=== PATIENT | female | born 1995 | race Caucasian/White ===

== ENCOUNTER 2017-01-01 20:34 | Emergency (ER) | payer BC ==
[2017-01-01 20:56] VITALS: BMI 32.8
--- NOTE | 2017-01-01 23:43 | PDOC ---
History of Present Illness - General Chief Complaint: Headache Stated Complaint: HEADACHE/FATIGUE Time Seen by Provider: 01/01/17 23:19 - History of Present Illness Initial Comments: 01/01/17 23:59 Patient is a 21-year-old female with past medical history of PCOS, prediabetes, hypothyroidism who presents to the emergency department tonight complaining of fatigue and headache. Patient states that her headache started approximately 1 week ago. She notices flashing lights before her headache started. She states that light and sound make her headache worse. The headache is mostly located in of her head. Patient also endorses body aches. States this is unlike her usual headaches. Denies fevers, chills, nausea, vomiting, diarrhea, chest pain, weakness, numbness and tingling, dizziness, changes in gait. Past History - Past Medical History Allergies/Adverse Reactions: Allergies Allergy/AdvReac Type Severity Reaction Status Date / Time No Known Allergies Allergy Verified 01/02/17 04:38 Home Medications: Ambulatory Orders Sulfamethoxazole/Trimethoprim [Bactrim Ds -] 1 tab PO BID #14 tablet 01/02/17 Tramadol HCl/Acetaminophen [Tramadol-Acetaminophn 37.5-325] 1 each PO TID #10 tablet MDD 3 01/02/17 Diabetes: Yes (pre-diabetes) Thyroid Disease: Yes Other medical history: polycystic ovarian syndrome - Psycho/Social/Smoking Cessation Hx Suicidal Ideation: No Smoking History: Never smoked Review of Systems - Review of Systems Able to Perform ROS?: Yes Comments:: 01/02/17 00:04 CONSTITUTIONAL: Present: fatigue Absent: fever, chills, diaphoresis, generalized weakness, malaise, loss of appetite HEENT: Absent: rhinorrhea, nasal congestion, throat pain, throat swelling, difficulty swallowing, mouth swelling, ear pain, eye pain, visual Changes CARDIOVASCULAR: Absent: chest pain, loss of consciousness, palpitations, irregular heart rate, peripheral edema RESPIRATORY: Absent: cough, shortness of breath, dyspnea with exertion, orthopnea, wheezing, stridor, hemoptysis GASTROINTESTINAL: Absent: abdominal pain, abdominal distension, nausea, vomiting, diarrhea, constipation, melena, hematochezia GENITOURINARY: Absent: dysuria, frequency, urgency, hesitancy, hematuria, flank pain, genital pain MUSCULOSKELETAL: Absent: myalgia, arthralgia, joint swelling SKIN: Absent: rash, itching, pallor HEMATOLOGIC/IMMUNOLOGIC: Absent: easy bleeding, easy bruising, lymphadenopathy, frequent infections ENDOCRINE: Absent: unexplained weight gain, unexplained weight loss, heat intolerance, cold intolerance NEUROLOGIC: Present: headache, aura. Absent: focal weakness or paresthesias, dizziness, unsteady gait, seizure, mental status changes, bladder or bowel incontinence PSYCHIATRIC: Absent: anxiety, depression, suicidal or homicidal ideation, hallucinations. Is the patient limited [place] proficient: No *Physical Exam - Vital Signs Last Vital Signs Temp Pulse Resp BP Pulse Ox 98.5 F 93 H 18 140/96 99 01/01/17 20:53 01/01/17 20:53 01/01/17 20:53 01/01/17 20:53 01/01/17 20:53 - Physical Exam Comments: 01/02/17 00:05 GENERAL: Well developed, well nourished. Awake and alert. No acute distress. HEENT: Normocephalic, atraumatic. PERRLA, EOMI. No conjunctival pallor. Sclera are non- icteric. Moist mucous membranes. Oropharynx is clear. NECK: Supple. Full ROM. No JVD. Carotid pulses 2+ and symmetric, without bruits. No thyromegaly. No lymphadenopathy. CARDIOVASCULAR: Regular rate and rhythm. No murmurs, rubs, or gallops. Distal pulses are 2+ and symmetric. PULMONARY: No evidence of respiratory distress. Lungs clear to auscultation bilaterally. No wheezing, rales or rhonchi. ABDOMINAL: Soft. Non-tender. Non-distended. No rebound or guarding. No organomegaly. Normoactive bowel sounds. MUSCULOSKELETAL Normal range of motion at all joints. No bony deformities or tenderness. No CVA tenderness. EXTREMITIES: No cyanosis. No clubbing. No edema. No calf tenderness. SKIN: Warm and dry. Normal capillary refill. No rashes. No jaundice. NEUROLOGICAL: Alert, awake, appropriate. Cranial nerves 2-12 intact. No deficits to light touch and temperature in face, upper extremities and lower extremities. No motor deficits in the in face, upper extremities and lower extremities. Normoreflexic in the upper and lower extremities. Normal speech. Toes are down- going bilaterally. no dysmetria or dysarthria. Gait is normal without ataxia. PSYCHIATRIC: Cooperative. Good eye contact. Appropriate mood and affect. ED Treatment Course - LABORATORY CBC & Chemistry Diagram: 01/02/17 00:36 01/02/17 00:36 Medical Decision Making - Medical Decision Making 01/02/17 00:12 Patient is a 21-year-old female with past medical history of PE COS, prediabetes , hypothyroidism who presents to the emergency department tonight complaining of fatigue and headache. Patient states that her headache started approximately 1 week ago. Most likely this is a migraine that is unresolved. Patient states that she did not take ibuprofen regularly. However given that the symptoms going on for a week and that this is unlike her usual headaches we'll obtain lab work at this time. Neuro exam is normal negative Kernig's and Brudzinski signs. Vital signs are stable afebrile. 1.CBC, CMP, PT/INR, UA, UC, urine 2.Tylenol, IV fluids 3.reevaluate 01/02/17 01:58 Patient states that Tylenol did not help her symptoms. Waiting on urine to give her stronger medication. We will obtain CT of the head. 01/02/17 02:34 Urine is negative. We'll give Toradol and Pepcid at this time. White blood cell count is mildly elevated at this time, urine is positive for UTI all other labs are normal. Reevaluate. 01/02/17 03:48 CT of the head shows no acute intracranial pathology, no hemorrhage or ischemic changes, no osseous changes found. Patient still complaining of headache. States that the Toradol and Pepcid helps a little bit. We will give tramadol now. 01/02/17 04:14 Patient sleeping comfortably. 01/02/17 05:04 Patient states that tramadol helped tremendously and that her headache is now very mild at a 1 out of 10. Patient is feeling better to go home. Positive for urinary tract infection. We will treat with Bactrim at this time.We'll discharge home at this time with tramadol for pain control as well as instructions to take ibuprofen until her symptoms resolve. She is to avoid close reading, straining her eyes as well as mild sounds and screens. Patient understands all discharge instructions and all questions were answered at this time. *DC/Admit/Observation/Transfer Diagnosis at time of Disposition: Migraine Qualifiers: Migraine type: with aura Status migrainosus presence: without status migrainosus Intractability: not intractable Qualified Code(s): G43.109 - Migraine with aura, not intractable, without status migrainosus UTI (urinary tract infection) Qualifiers: Urinary tract infection type: acute cystitis Hematuria presence: with hematuria Qualified Code(s): N30.01 - Acute cystitis with hematuria - Discharge Dispostion Admit: No - Prescriptions Prescriptions: Sulfamethoxazole/Trimethoprim [Bactrim Ds -] 1 tab PO BID #14 tablet Tramadol HCl/Acetaminophen [Tramadol-Acetaminophn 37.5-325] 1 each PO TID #10 tablet MDD 3 - Referrals Referrals: Mg Eagle DO [Staff Physician] - - Patient Instructions Printed Discharge Instructions: DI for Migraine, DI for Urinary Tract Infection (UTI) Additional Instructions: You have a migraine and a UTI. You were prescribed antibiotics for the UTI. Drink plenty of fludis. Take the full dose even if you feel better. Your CT Scan was negative for a brain bleed. You were prescribed tramadol as needed for pain for your headache. Follow the instructions on the label and do not drive after taking this medication as it may make you sleepy. Avoid reading and activities where you need to focus your vision. You were given a number for a neurologist. Call them to set up an appointment to be evaluated for your headache. Return to the ED if you have worsening pain, nausea, vomiting, dizziness, weakness, or any changes in your symptoms.
[2017-01-02] MEDS ORDERED: ACETAMINOPHEN 325 MG TABLET (FP) PO ONE (00:58)
[2017-01-02 01:08] LABS: BASOPHIL 0.3 % (0-2.0); EOSINOPHIL 2.5 % (0-4.5); MCH 28.6 pg (25.7-33.7); MEAN CELL VOLUME 86.8 fl (80-96); MEAN PLT VOLUME 8.4 fl (7.5-11.1); PLATELET COUNT 338 K/MM3 (134-434); RDW 14.4 % (11.6-15.6); WHITE BLOOD COUNT 12.6 K/mm3 (4.0-10.0)
--- NOTE | 2017-01-02 01:08 | PDOC ---
*Physical Exam - Vital Signs Last Vital Signs Temp Pulse Resp BP Pulse Ox 98.5 F 93 H 18 140/96 99 01/01/17 20:53 01/01/17 20:53 01/01/17 20:53 01/01/17 20:53 01/01/17 20:53 ED Treatment Course - LABORATORY CBC & Chemistry Diagram: 01/02/17 00:36 01/02/17 00:36 Medical Decision Making - Medical Decision Making 01/02/17 01:07 agree with care from MIRNA Fischer *DC/Admit/Observation/Transfer Diagnosis at time of Disposition: Migraine, UTI (urinary tract infection) - Prescriptions Prescriptions: Sulfamethoxazole/Trimethoprim [Bactrim Ds -] 1 tab PO BID #14 tablet Tramadol HCl/Acetaminophen [Tramadol-Acetaminophn 37.5-325] 1 each PO TID #10 tablet MDD 3 - Referrals Referrals: Mg Eagle DO [Staff Physician] - - Patient Instructions Printed Discharge Instructions: DI for Migraine, DI for Urinary Tract Infection (UTI) Additional Instructions: You have a migraine and a UTI. You were prescribed antibiotics for the UTI. Drink plenty of fludis. Take the full dose even if you feel better. Your CT Scan was negative for a brain bleed. You were prescribed tramadol as needed for pain for your headache. Follow the instructions on the label and do not drive after taking this medication as it may make you sleepy. Avoid reading and activities where you need to focus your vision. You were given a number for a neurologist. Call them to set up an appointment to be evaluated for your headache. Return to the ED if you have worsening pain, nausea, vomiting, dizziness, weakness, or any changes in your symptoms.
[2017-01-02 01:33] LABS: URINE APPEARANCE CLEAR; URINE BILIRUBIN NEGATIVE (NEGATIVE); URINE BLOOD 2+ (NEGATIVE); URINE COLOR YELLOW; URINE GLUCOSE (UA) NEGATIVE (NEGATIVE); URINE KETONE NEGATIVE (NEGATIVE); URINE NITRITE NEGATIVE (NEGATIVE); URINE PROTEIN NEGATIVE (NEGATIVE); URINE UROBILINOGEN NEGATIVE mg/dL (0.2-1.0)
[2017-01-02] MEDS ORDERED: KETOROLAC TROMETHAMINE 30 MG/1 ML VIAL IVPUSH ONE (01:45)
[2017-01-02] MEDS ORDERED: FAMOTIDINE 20 MG/50 ML IVPB 50 ML IVPB ONE (01:47)
[2017-01-02 02:03] LABS: ALBUMIN 3.7 g/dl (3.4-5.0); ANION GAP 9 (8-16); BILIRUBIN,TOTAL 0.6 mg/dL (0.2-1.0); CALCIUM 8.7 mg/dL (8.5-10.1); CO2 27 mmol/L (21-32); CREATININE 0.7 mg/dL (0.55-1.02); GLUCOSE,RANDOM 84 mg/dL (74-106); SGOT/AST 24 U/L (15-37); SGPT/ALT 31 U/L (12-78); TOT PROT 6.6 g/dl (6.4-8.2)
[2017-01-02 02:04] LABS: ALK PHOS 98 U/L (45-117)
[2017-01-02] MEDS ORDERED: KETOROLAC TROMETHAMINE 30 MG/1 ML VIAL ONE (02:18)
[2017-01-02 03:29] LABS: URINE LEUK ESTERASE 1+ (NEGATIVE)
[2017-01-02] MEDS ORDERED: traMADol HCL 50 MG TABLET PO ONE (04:08)
[2017-01-02] MEDS ORDERED: traMADol HCL 50 MG TABLET ONE (04:13)
[2017-01-02 04:17] LABS: URINE BACTERIA MANY /hpf (NONE SEEN); URINE RBC 2 /hpf (0-3); URINE WBC 6 /hpf (3-5)
[2017-01-02 05:42] VITALS: BP 138/89; PULSE 87; TEMP 98.3
== END 2017-01-02 05:49 | disposition home or self-care (01) ==
LOC: JER 20:34
PROC: 3E033GC Introduction of Other Therapeutic Substance into Peripheral Vein, Percutaneous Approach (ICD-10-PCS; principal; 2017-01-01)
PROC: 3E0333Z Introduction of Anti-inflammatory into Peripheral Vein, Percutaneous Approach (ICD-10-PCS; 2017-01-01)
DX: G43.109 Migraine with aura, not intractable, without status migrainosus (principal); N30.01 Acute cystitis with hematuria; R73.03 Prediabetes; E03.9 Hypothyroidism, unspecified; E28.2 Polycystic ovarian syndrome
CPT/HCPCS: 36415; 70450-TC; 80053; 81003; 81015; 84703; 85025; 87086; 99283-25